=== PATIENT | male | born 1970 | race Asian ===

== ENCOUNTER 2024-04-15 12:06 | Emergency (ER) | payer OTHER ==
[~2024-04-15] VITALS: Ht 167.6 cm; Wt 65.8 kg
[2024-04-15 12:12] VITALS: BP 140/88; TEMP 98; O2SAT 97
[2024-04-15] MEDS: AZITHROMYCIN 250 MG TABLET PO ONE (12:40)
== END 2024-04-15 12:45 | disposition home or self-care (01) ==
LOC: ER 12:10
DX: Z20.811 Contact with and (suspected) exposure to meningococcus (principal)